=== PATIENT | female | born 1985 | race Caucasian/White ===

== ENCOUNTER → 2022-07-25 08:00 | Outpatient (CLI) | payer OTHER ==
[~2022-07-25] VITALS: Ht 167.6 cm; Wt 68.0 kg
== END | disposition home or self-care (01) ==
LOC: ADM 07:45 → LAB 08:00 → CIR.AMB 07-28 07:00 → EDSTATUS 07-28 07:45 → CIR.AMB 07-28 07:45
PROVIDERS: ATTEND Obstetrics & Gynecology
DX: R87.613 High grade squamous intraepithelial lesion on cytologic smear of cervix (HGSIL) (principal)

== ENCOUNTER 2023-01-25 08:24 | Day surgery (SDC) | payer OTHER | END 2023-01-25 19:30 | disposition home or self-care (01) | LOC: CIR.AMB 08:24 | PROVIDERS: ATTEND Obstetrics & Gynecology | DX: N87.0 Mild cervical dysplasia (principal); N88.8 Other specified noninflammatory disorders of cervix uteri; Z20.822 Contact with and (suspected) exposure to COVID-19 ==

== ENCOUNTER 2024-04-10 10:15 | Inpatient (IN) | payer OTHER ==
[~2024-04-10] VITALS: Ht 152.4 cm; Wt 3.6 kg
[2024-04-17 05:28] VITALS: BP 113/74
[2024-04-17] MEDS ORDERED: PRENATAL + DHA1 EAC1 PO (05:49)
[2024-04-17] MEDS ORDERED: OXYTOCIN 10 UNITS/ML VIAL IV ONE (07:30)
[2024-04-17] MEDS ORDERED: ERYTHROMYCIN BASE OPHT 1GM EACH TUBE OP ONE (07:30)
[2024-04-17] MEDS ORDERED: CEFAZOLIN SODIUM 1,000 MG VIAL IV ONE (07:30)
[2024-04-17] MEDS ORDERED: MORPHINE SULFATE 4 MG/ML VIAL IV ONE ×2 (10:15→10:45)
[2024-04-17] MEDS ORDERED: KETOROLAC TROMETHAMINE 30 MG VIAL IV SCH (12:00)
[2024-04-17] MEDS ORDERED: MORPHINE SULFATE 4 MG/ML CARTRIDGE IV SCH (13:12)
[2024-04-17] MEDS ORDERED: OXYTOCIN 1,000 ML IV ONE (13:15)
[2024-04-17 14:07] VITALS: BP 128/67
[2024-04-17] MEDS ORDERED: CITRIC ACID/SODIUM CITRATE 30 ML BLIST.PACK PO ONE (15:45)
[2024-04-17 16:00] VITALS: BP 128/71
[2024-04-18] VITALS: BP 123/76
[2024-04-18] MEDS ORDERED: ACETAMINOPHEN 500 MG GEL..CAP PO SCH (06:00)
[2024-04-18 07:18] LABS: HEMATOCRIT 29.4 % (36.0-45.00); MEAN CELL VOLUME 82.2 fL (80.00-100.00); MEAN CORPUSCULAR HGB CONC 33.1 g/dl (32.0-36.0); RED BLOOD COUNT 3.57 M/uL (4.00-6.00)
[2024-04-18 07:29] LABS: MEAN CORPUSCULAR HEMOGLOBIN 27.1 pg (27.00-32.0)
[2024-04-18 07:30] LABS: HEMOGLOBIN 9.7 g/dL (12.0-15.00); PLATELET COUNT 127 K/uL (150-450)
[2024-04-18 08:00] VITALS: BP 102/60
[2024-04-18] MEDS ORDERED: PNV,CALCIUM 72/IRON/FOLIC ACID 1 TAB TABLET PO SCH (09:00)
[2024-04-18] MEDS ORDERED: DOCUSATE SODIUM 100MG CAP PO SCH (09:00)
[2024-04-18] MEDS ORDERED: SIMETHICONE 125 MG CAPSULE PO SCH (09:00)
[2024-04-18] MEDS ORDERED: GABAPENTIN 300 MG CAPSULE PO SCH (09:00)
[2024-04-18] MEDS ORDERED: IBUprofen 600 MG TABLET PO SCH (12:00)
[2024-04-18 16:00] VITALS: BP 141/80
[2024-04-19 02:04] VITALS: BP 127/77
[2024-04-19 08:50] VITALS: BP 127/82
[2024-04-19 16:00] VITALS: BP 135/82
[2024-04-19 20:00] VITALS: BP 134/81
[2024-04-20 02:18] VITALS: BP 132/84
[2024-04-20 08:00] VITALS: BP 139/80
== END 2024-04-20 14:25 | disposition home or self-care (01) | DRG 785 ==
LOC: O/R 04-17 05:15 → LDR 04-17 07:00 → OB/GYN 04-17 13:27
PROVIDERS: Obstetrics & Gynecology Gynecology; ADMIT Obstetrics & Gynecology; ATTEND Obstetrics & Gynecology
PROC: 0UB70ZZ Excision of Bilateral Fallopian Tubes, Open Approach (ICD-10-PCS; 2024-04-17)
PROC: 4A1HXCZ Monitoring of Products of Conception, Cardiac Rate, External Approach (ICD-10-PCS; 2024-04-17)
PROC: 10D00Z1 Extraction of Products of Conception, Low, Open Approach (ICD-10-PCS; principal; 2024-04-17 07:00)
DX: O34.211 Maternal care for low transverse scar from previous cesarean delivery (principal); O99.824 Streptococcus B carrier state complicating childbirth; Z30.2 Encounter for sterilization; Z3A.39 39 weeks gestation of pregnancy; Z37.0 Single live birth; Z20.822 Contact with and (suspected) exposure to COVID-19